=== PATIENT | male | born 1960 | race Asian ===

== ENCOUNTER 2017-07-22 07:05 | Day surgery (SDC) | payer OTHER ==
[2017-07-22] MEDS ORDERED: FENTAnyl 50 MCG/ML VIAL (09:22)
[2017-07-22] MEDS ORDERED: MIDAZOLAM 1 MG/ML 2 ML INJ ×2 (09:22→09:23)
== END 2017-07-22 11:13 | disposition home or self-care (01) ==
LOC: GIL 07:05
DX: Z12.11 Encounter for screening for malignant neoplasm of colon (principal); E11.9 Type 2 diabetes mellitus without complications; I10 Essential (primary) hypertension
CPT/HCPCS: 45378; 82962